=== PATIENT | female | born 1990 | race Caucasian/White ===

== ENCOUNTER 2020-08-09 10:00 | Outpatient (RCR) | payer OTHER, SELFPAY ==
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
--- NOTE | 2020-08-04 10:34 | PCPTNOTE ---
Patient did not show up for scheduled appointment this date; called patient who stated she tried calling earlier stating she was running late and unable to make it but couldn't get threw. Stated her neck was still bothering her not as bad as last week but more at the base of her neck. Stated having increase dizziness this date and wondering if she should go back to the chiropractor for an adjustment. Educated the patient to hold off on returning to the chiropractor due to them increase symptoms and with vestibular evaluation tomorrow the dizziness with be address.
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
== END 2020-08-09 13:42 | disposition home or self-care (01) ==
LOC: ANHPT 10:00
PROVIDERS: Referring Provider Family Medicine; Visit Provider Family Medicine
DX: M54.2 Cervicalgia (principal); G89.29 Other chronic pain
CPT/HCPCS: 97110; 97140; 97162

== ENCOUNTER 2020-09-07 10:00 | Outpatient (RCR) | payer OTHER, SELFPAY ==
--- NOTE | 2020-08-05 09:18 | PTOPEVAL ---
PHYSICAL THERAPY EVALUATION AND PLAN OF CARE 08-05-2020 Thank you for referring Hema Gay to [facility].? She is scheduled to be seen for therapy? 1-2 x/week for 5 weeks. Please review, sign, date and return this plan of care KADE. I agree with and certify that the following plan of care is medically necessary. Referring Physician Date Attending Provider: Aruna Oliver NP *PT Outpatient Evaluation Document 08/05/20 08:12 RAFAEL (Rec: 08/05/20 09:18 RAFAEL [id number]) Outpatient Past Medical History Past Medical History Source of Past Medical History Recalled from Previous Visit, Confirmed with Patient/Family Neurological History Hx Migraine Yes: 2x/month migraine/ headache 2-3x/wk, last all day Cardiovascular History Hx Cardiac Disorders No Significant History Respiratory History Hx Respiratory Disorders No Significant History Gastrointestinal History Hx Gastroesophageal Reflux Disease Yes: meds Genitourinary History Hx Other Genitourinary Disorders Yes: IC bladder dx; constipation issues Musculoskeletal History Hx Other Musculoskeletal Disorders Yes: neck and back pain Hematological History Hx Hematological Disorders No Significant History Endocrine History Hx Endocrine Disorders No Significant History HEENT History Hx Sinus Problems Yes: frequent sinus infection, respiratory allergies Hx Dental Problems Yes: clench jaw-TMJ pain Hx Other HEENT Disorders Yes: sinus headaches-jaw pain, post nasal drainage Integumentary History Hx Skin Disorders No Significant History Psychosocial History Hx Anxiety Yes: not taking any meds-don' t like how they make feel Hx Other Psychiatric Disorders Yes: dizziness increases her anxiety;fear of germs;panic attacks Evaluation Information Problem Diagnosis dizziness/ vestibular rehab Onset Apr 26, 2020 Subjective Information currently getting PT treatment Query Text:As Reported By Patient/ here for cervical pain and Family headaches; Previous Treatments Previous Treatments For This Problem was going chiropractor for neck& back pain, no longer going; Prior Level of Function Activity Level (Last 3 Months) Occupation not working outside of home; Cooking Yes Cleaning Yes Laundry Yes Shopping Yes Driving Yes Comments Additional Prior Level of Function 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
--- NOTE | 2020-08-24 10:37 | PCPTNOTE ---
Patient did not show up for scheduled appointment this date. Called patient and she stated she forgot to call and cancel due to the weather, and helping the kids with school.
--- NOTE | 2020-08-31 11:26 | PCPTNOTE ---
pt did not show for today's appt; called and left voice message with reminder for reeval appt next week;
--- NOTE | 2020-09-07 10:39 | PCPTNOTE ---
pt did not show for today's reevaluation; called and left voicemail for her; message that she missed appt and to call if additional PT is needed, otherwise will be d/c in 2 wks;
--- NOTE | 2020-09-22 11:22 | PCPTNOTE ---
PHYSICAL THERAPY DISCHARGE 09-22-20 Attending Provider: Aruna Oliver NP Patient:Hema Gay Date of :1990 Ms. Gay has not returned for any further treatments since 09/07/2020, therefore she will be discharged at this time. Hema has received 3 PT sessions, for the diagnosis of dizziness, from August 05 to August 17, then did not show for 3 appointments. The goals were not assessed. Thank you for referring Hema to [facility]. Please review, sign, date and return this discharge summary KADE. I have been updated about the patient's current status and I agree with discharge from the above service at this time. Referring Physician Date
== END 2020-09-23 10:06 | disposition home or self-care (01) ==
LOC: ANHPT 10:00
PROVIDERS: PCP Family Medicine
DX: R42 Dizziness and giddiness (principal)
CPT/HCPCS: 97110; 97162

== ENCOUNTER 2021-04-27 19:47 | Emergency (ER) | payer OTHER, SELFPAY ==
[2021-04-27 19:55] VITALS: BP 131/77; PULSE 87; RESP 16; TEMP 37.1; O2SAT 100
--- NOTE | 2021-04-27 20:21 | ED.GENADULT ---
HPI - General Adult General Chief complaint: Upper Respiratory Infection Stated complaint: Congestion Source: patient Mode of arrival: ambulatory Limitations: no limitations History of Present Illness HPI narrative: 30 y/o female. PMHx Allergies. Presents to [facility] this ROMERO w/acute complaints of increased sinus pressure on the RT side, as well as a sore and tender RT nare. Manifestations present X 5 days. No releif with home nasal spray remedies. No fever. No cough, congestion. No ROMERO, dizziness, syncopy. Related Data Home Medications Medication Instructions Recorded Confirmed ascorbate calcium (vitamin C) 500 500 mg PO DAILY 08/29/20 04/27/21 mg tablet cholecalciferol (vitamin D3) 10 10 mcg PO DAILY 08/29/20 04/27/21 mcg (400 unit) capsule copper 380 square mm intrauterine 1 device INTRAUTERINE ONCE 08/29/20 04/27/21 device Allergies Allergy/AdvReac Type Severity Reaction Status Date / Time amoxicillin Allergy Unknown Nausea Verified 04/27/21 20:00 clindamycin Allergy Unknown Nausea Verified 04/27/21 20:00 Review of Systems Review of Systems: CONSTITUTIONAL: Denies fever, chills, sweats. EYES: Denies visual changes, redness, discharge. ENT: Positive congestion. No sore throat, otalgia. CARDIOVASCULAR: Denies chest pain, palpitations, edema. RESPIRATORY: Denies dyspnea, wheezing, cough GASTROINTESTINAL: Denies abdominal pain, nausea, vomiting, diarrhea. GENITOURINARY: Denies dysuria, hematuria, abnormal discharge SKIN: Denies rash or itching. MUSCULOSKELETAL: Denies acute back pain, joint pain, or myalgia. NEUROLOGIC: Denies numbness, or focal weakness. PSYCHIATRIC: Denies anxiety or depression. All systems reviewed & are unremarkable except as noted in HPI and below PMFSH Past Medical History Medical History Depression GERD (gastroesophageal reflux disease) History of HPV infection IBS (irritable bowel syndrome) Overweight (BMI 25.0-29.9) Surgical History Surgical History H/O dilation and curettage Family History Family History Grandparent Family history of malignant neoplasm of stomach Family history of chronic obstructive pulmonary disease Family history of congestive heart failure Mother Hypertension Sibling Asthma Other Family history of cardiovascular disease Family history of malignant neoplasm of male breast Social History Social History Smoking status: Never smoker Alcohol intake: never Substance use: never Gender identity (if verbalized by the patient): Female Sexual Orientation (if Verbalized by the Patient): Straight or Heterosexual Spiritual care concerns: No Agree to blood products: Yes Exam Narrative: GENERAL: This is a well-nourished, well-developed adult, in no apparent distress. HEAD: normocephalic, atraumatic. EYES: PERRL. Sclera clear/white. EARS: External ears normal, auditory canals clear and without drainage, TMs normal. NOSE: External nose normal. Positive Rhinorrhea, no obstruction, nares patent. With tenderness located to RT inner nares, no fluctuance, no obstruction. Maxillary facial pressure. THROAT: Mucous membranes moist, posterior pharynx clear. No exudates. NECK: Neck supple, non-tender without lymphadenopathy, masses or thyromegaly. CARDIOVASCULAR: Regular rate and rhythm without murmurs, gallops, or rubs. RESPIRATORY: Clear to auscultation. Breath sounds equal bilaterally. No wheezes, rales, or rhonchi. GASTROINTESTINAL: Abdomen soft, non-tender, nondistended. Bowel sounds are active. No guarding. SKIN: warm, intact with no suspicious lesions or rash, good texture and turgor. NEURO: Alert, active, and age appropriate. No focal neurologic deficits. EXTREMITIES: Negative. Course Vital S
== END 2021-04-27 20:25 | disposition home or self-care (01) ==
PROVIDERS: Emergency Provider Nurse Practitioner Adult Health; PCP Family Medicine
DX: J01.00 Acute maxillary sinusitis, unspecified (principal); K21.9 Gastro-esophageal reflux disease without esophagitis
CPT/HCPCS: 99213; G0463

== ENCOUNTER 2021-06-20 19:42 | Emergency (ER) | payer OTHER, SELFPAY ==
[2021-06-20 19:52] VITALS: BP 117/75; PULSE 85; RESP 16; TEMP 36.4; O2SAT 99
--- NOTE | 2021-06-20 19:52 | ED.FEMALEGU ---
HPI - Female Genitourinary General Chief complaint: Urogenital-Female Stated complaint: uti Time Seen by Provider: 06/20/21 19:52 Source: patient and RN notes reviewed Mode of arrival: ambulatory Limitations: no limitations History of Present Illness HPI Narrative: 40-year-old female presents with concern for dysuria and low back pain last night. Reports symptoms resolved after using cranberry pills. Reports history of interstitial cystitis. She denies fever, body aches, chills, abdominal pain, vomiting or nausea. MD elicited complaint: UTI Related Data Home Medications Medication Instructions Recorded Confirmed paroxetine HCl 10 mg PO DAILY 06/20/21 06/20/21 Allergies Allergy/AdvReac Type Severity Reaction Status Date / Time amoxicillin Allergy Intermediate Nausea Verified 06/20/21 19:46 clindamycin Allergy Intermediate Nausea Verified 06/20/21 19:46 Review of Systems Review of Systems: CONSTITUTIONAL: Denies malaise, chills, sweats, or fever. GASTROINTESTINAL: Denies abdominal pain, nausea, vomiting GENITOURINARY: Reports dysuria yesterday. Denies current dysuria, urgency, frequency, or hematuria. SKIN: Denies rash or itching. MUSCULOSKELETAL: Reports low back pain. Denies myalgia. All systems reviewed & are unremarkable except as noted in HPI and below PMFSH Past Medical History Medical History Depression GERD (gastroesophageal reflux disease) History of HPV infection IBS (irritable bowel syndrome) Overweight (BMI 25.0-29.9) Surgical History Surgical History H/O dilation and curettage Family History Family History Grandparent Family history of malignant neoplasm of stomach Family history of chronic obstructive pulmonary disease Family history of congestive heart failure Mother Hypertension Sibling Asthma Other Family history of cardiovascular disease Family history of malignant neoplasm of male breast Social History Social History Alcohol intake: never Substance use: never Gender identity (if verbalized by the patient): Female Sexual Orientation (if Verbalized by the Patient): Straight or Heterosexual Spiritual care concerns: No Agree to blood products: Yes Comments At time of signature, agree with nursing past medical, surgical, social and family history. There is no relevant family history pertinent to the presenting complaint Exam Narrative: GENERAL: Well-appearing, well-nourished, and in no acute distress. HEAD: Normocephalic. EYES: PERRLA, conjunctivae clear. NECK: Supple. No lymphadenopathy CHEST: Clear to auscultation. No respiratory distress. HEART: Regular rate and rhythm. ABDOMEN: Soft, nontender upon palpation, nondistended, normal active bowel sounds, no palpable or pulsatile masses, no guarding. Mild bilateral CVA tenderness SKIN: Warm, dry, no rash. NEURO: Alert and oriented x3. PSYCH: Normal mood and affect Course Course Emergency Course: Patient is aware of diagnosis, understands and agrees to treatment plan. Anticipatory guidance given. Patient agrees to follow-up as directed and is aware of reasons to seek care at the emergency department. Portions of this record may have been created with voice recognition software Vital Signs Vital signs: Reviewed. MDM - Female Genitourinary MDM Narrative Medical decision making narrative: Exam findings and UA show no acute concerns or changes; patient is non-toxic appearing and is in no distress. Patient is appropriate for outpatient treatment and follow-up. Differential Diagnosis Differential diagnosis: Likely urinary tract infection and cystitis Critical Care Time Critical Care Time Critical Care Time: No Discharge Plan Discharge Clinical Impression: Dysuria Patien
== END 2021-06-20 20:03 | disposition home or self-care (01) ==
PROVIDERS: Emergency Provider Nurse Practitioner
DX: R30.0 Dysuria (principal); K21.9 Gastro-esophageal reflux disease without esophagitis; F32.A Depression, unspecified
CPT/HCPCS: 81003; 87086; 99213; G0463

== ENCOUNTER 2021-06-24 15:11 | Emergency (ER) | payer OTHER, SELFPAY ==
--- NOTE | ~2021-06-24 | XR_ITS ---
XR chest 2V 06/24/2021 16:18 Indication: Productive cough. Covid positive. Procedure: 2 view chest Comparison: No prior studies for comparison. Findings: Patchy bibasilar airspace disease, compatible with pneumonia. Heart size normal. No pleural effusion or pneumothorax. No acute osseous abnormality. Impression: 1: Patchy bibasilar airspace disease, compatible with pneumonia. Reviewed, dictated and finalized at location A. B TRAINER Impression: 1: Patchy bibasilar airspace disease, compatible with pneumonia.
--- NOTE | 2021-06-24 15:25 | ED.URI ---
HPI - URI/Sore Throat General Chief Complaint: Upper Respiratory Infection Stated Complaint: chest congestion Time Seen by Provider: 06/24/21 16:04 Source: patient and RN notes reviewed Mode of arrival: ambulatory Limitations: no limitations History of Present Illness HPI Narrative: 30-year-old female presents with concern for cough and chest congestion. Reports she tested positive for Covid on Saturday. She reports cough, back pain when she coughs. Reports anxiety. She denies fever, shortness of breath. Reports pulse oximetry at home reads 96-98. MD elicited complaint: cough Related Data Home Medications Medication Instructions Recorded Confirmed paroxetine HCl 10 mg PO DAILY 06/20/21 06/24/21 ondansetron HCl 4 mg PO PRN PRN 06/24/21 06/24/21 Allergies Allergy/AdvReac Type Severity Reaction Status Date / Time amoxicillin Allergy Intermediate Nausea Verified 06/24/21 16:05 clindamycin Allergy Intermediate Nausea Verified 06/24/21 16:05 Review of Systems Review of Systems: CONSTITUTIONAL: Reports malaise. Denies chills, sweats, or fever. EYES: Denies visual changes, redness, or discharge. ENT: Reports rhinorrhea, congestion. Denies sinus pain, otalgia and sore throat. CARDIOVASCULAR: Denies chest pain, palpitations, or edema. RESPIRATORY: Reports cough. Denies dyspnea. GASTROINTESTINAL: Denies abdominal pain, nausea, vomiting, diarrhea SKIN: Denies rash or itching. MUSCULOSKELETAL: Denies myalgia. NEUROLOGIC: Denies headache. Psych: Reports anxiety All systems reviewed & are unremarkable except as noted in HPI and below PMFSH Past Medical History Medical History Depression GERD (gastroesophageal reflux disease) History of HPV infection IBS (irritable bowel syndrome) Overweight (BMI 25.0-29.9) Surgical History Surgical History H/O dilation and curettage Family History Family History Grandparent Family history of malignant neoplasm of stomach Family history of chronic obstructive pulmonary disease Family history of congestive heart failure Mother Hypertension Sibling Asthma Other Family history of cardiovascular disease Family history of malignant neoplasm of male breast Social History Social History Alcohol intake: never Substance use: never Gender identity (if verbalized by the patient): Female Sexual Orientation (if Verbalized by the Patient): Straight or Heterosexual Spiritual care concerns: No Agree to blood products: Yes Comments At time of signature, agree with nursing past medical, surgical, social and family history. There is no relevant family history pertinent to the presenting complaint Exam Narrative: GENERAL: Well-appearing, well-nourished, and in no acute distress. HEAD: Normocephalic EYES: PERRLA, conjunctivae clear ENT: Mucous membranes moist. TM pearly owens with sharp light reflex bilaterally; no tragal tenderness. NECK: Supple. No lymphadenopathy CHEST: Left lower crackles. Breath sounds equal. No wheezing, or stridor. No respiratory distress, speaks in full sentences. HEART: Regular rate and rhythm. No murmur heard. SKIN: Warm, dry, no rash. NEURO: Alert and oriented x3. PSYCH: Normal mood and affect Course Course Emergency Course: Patient is aware of diagnosis, understands and agrees to treatment plan. Anticipatory guidance given. Patient agrees to follow-up as directed and is aware of reasons to seek care at the emergency department. Portions of this record may have been created with voice recognition software Vital Signs Vital signs: Reviewed. MDM - URI/Sore Throat MDM Narrative Medical decision making narrative: Differential diagnosis considered: Marinelli virus, strep pharyngitis, allergic rhinitis, upper respiratory tract
[2021-06-24 15:34] VITALS: BP 135/80; PULSE 98; RESP 16; TEMP 36.8; O2SAT 98
== END 2021-06-24 16:45 | disposition home or self-care (01) ==
PROVIDERS: Emergency Provider Nurse Practitioner; PCP Family Medicine
DX: U07.1 COVID-19 (principal); J12.82 Pneumonia due to coronavirus disease 2019; F32.A Depression, unspecified; K21.9 Gastro-esophageal reflux disease without esophagitis
CPT/HCPCS: 71046; 99213; G0463

== ENCOUNTER 2021-07-16 08:26 | Emergency (ER) | payer OTHER, SELFPAY ==
--- NOTE | 2021-07-16 08:29 | ED.URI ---
HPI - URI/Sore Throat General Chief Complaint: Upper Respiratory Infection Stated Complaint: sore throat/swain/neck pain Source: patient, family, RN notes reviewed and old records reviewed Mode of arrival: ambulatory Limitations: no limitations History of Present Illness HPI Narrative: 30-year-old female presents to the [facility] with complaints of a sore throat that worsened today, Started yesterday. Patient reports that she had Covid early June and ever since has had intermittent headaches, sinus congestion and pressure. Reports that her daughter tested positive for strep the other day. She is concerned for strep Denies fevers, chest pain, abdominal pain. No nausea vomiting diarrhea. MD elicited complaint: sore throat Related Data Home Medications Medication Instructions Recorded Confirmed paroxetine HCl 10 mg PO DAILY 06/20/21 06/24/21 azelastine INTRANASAL 07/16/21 pantoprazole PO 07/16/21 07/16/21 Allergies Allergy/AdvReac Type Severity Reaction Status Date / Time amoxicillin Allergy Intermediate Nausea Verified 07/16/21 08:34 clindamycin Allergy Intermediate Nausea Verified 07/16/21 08:34 Review of Systems Review of Systems: All systems reviewed & are unremarkable except as noted in HPI and below Constitutional: Constitutional: Reports no additional constitutional complaints, Denies chills, Denies fever(s) and Denies headache(s) Eyes: Eyes: Reports no additional eye complaints ENT: Reports as per HPI, Denies vertigo, Denies dizziness, Denies headache(s), Reports nasal congestion and Reports sore throat Cardiovascular: Cardiovascular: Reports no additional cardiovascular complaints, Denies chest pain, Denies syncope, Denies rapid heart rate and Denies dyspnea Respiratory: Respiratory: Reports no additional respiratory complaints, Denies cough, Denies dyspnea and Denies wheezing Gastrointestinal: Gastrointestinal: Reports no additional gastrointestinal complaints, Denies abdominal pain, Denies diarrhea, Denies nausea and Denies vomiting Musculoskeletal: Musculoskeletal: Reports no additional musculoskeletal complaints and Denies numbness Integumentary/Breasts: Skin/Breast: Reports system reviewed and no additional complaints, except as docu Neurologic: Reports as per HPI, Denies vertigo, Denies dizziness, Denies syncope, Reports headache(s) (Frontal), Denies focal weakness and Denies numbness Psychiatric: Psychiatric: Reports no additional psychiatric complaints Allergic/Immunologic: Allergic/Immunologic: Reports no additional allergic/immunologic complaints and Denies wheezing PMFSH Past Medical History Medical History Depression GERD (gastroesophageal reflux disease) History of HPV infection IBS (irritable bowel syndrome) Overweight (BMI 25.0-29.9) Surgical History Surgical History H/O dilation and curettage Family History Family History Grandparent Family history of malignant neoplasm of stomach Family history of chronic obstructive pulmonary disease Family history of congestive heart failure Mother Hypertension Sibling Asthma Other Family history of cardiovascular disease Family history of malignant neoplasm of male breast Social History Social History Alcohol intake: never Substance use: never Gender identity (if verbalized by the patient): Female Sexual Orientation (if Verbalized by the Patient): Straight or Heterosexual Spiritual care concerns: No Agree to blood products: Yes Comments At the time of my signature, I reviewed and agree with the nursing past medical, surgical, social, and family history. There is no relevant family history pertinent to the patient complaint. Exam Const: General: cooperative, healthy appearing, no acute distress and alert Nutritional Ivan
[2021-07-16 08:34] VITALS: BP 102/66; PULSE 86; RESP 16; TEMP 36.3; O2SAT 100
[2021-07-16 08:43] VITALS: BP 102/66; PULSE 86; RESP 16; TEMP 36.3; O2SAT 100
== END 2021-07-16 08:51 | disposition home or self-care (01) ==
PROVIDERS: Emergency Provider Nurse Practitioner; PCP Family Medicine
DX: J02.9 Acute pharyngitis, unspecified (principal); K21.9 Gastro-esophageal reflux disease without esophagitis; F32.A Depression, unspecified; Z86.16 Personal history of COVID-19
CPT/HCPCS: 87081; 87880; 99213; G0463

== ENCOUNTER 2021-09-23 10:43 | Emergency (ER) | payer OTHER, SELFPAY ==
[2021-09-23 10:53] VITALS: BP 93/68; PULSE 85; RESP 18; TEMP 36.4; O2SAT 100
--- NOTE | 2021-09-23 10:59 | ED.URI ---
HPI - URI/Sore Throat General Chief Complaint: Upper Respiratory Infection Stated Complaint: Sore Throat Time Seen by Provider: 09/23/21 10:59 Source: patient Mode of arrival: ambulatory Limitations: no limitations History of Present Illness HPI Narrative: 30 yo F presents with c/o sore throat, PND, runny nose that started yesterday. Her son had also just had similar symptoms and is now fine. She thought she had cold symptoms or allergies but then checked throat today and saw white spot. Now concerned that she might have strep throat. Denies fever/chills. No N/V. Denies headache. All systems reviewed and negative except as noted above. Related Data Home Medications Medication Instructions Recorded Confirmed ascorbic acid (vitamin C) 500 mg 500 mg PO DAILY 09/13/21 09/23/21 capsule,extended release magnesium gluconate 27 mg 27 mg PO BID 09/13/21 09/23/21 magnesium (500 mg) tablet Allergies Allergy/AdvReac Type Severity Reaction Status Date / Time amoxicillin Allergy Intermediate Nausea Verified 09/23/21 10:58 clindamycin Allergy Intermediate Nausea Verified 09/23/21 10:58 Review of Systems Review of Systems: CONSTITUTIONAL: Denies fever, chills, or sweats. EYES: Denies visual changes, redness, or discharge. ENT: Reports rhinorrhea, congestion, sore throat. Denies otalgia. CARDIOVASCULAR: Denies chest pain, palpitations, or edema. RESPIRATORY: Denies cough or dyspnea. GASTROINTESTINAL: Denies abdominal pain, nausea, vomiting, or diarrhea. GENITOURINARY: Denies dysuria or hematuria. SKIN: Denies rash or itching. MUSCULOSKELETAL: Denies back pain, joint pain, or myalgia. NEUROLOGIC: Denies headache, numbness, or weakness. PSYCHIATRIC: Denies anxiety or depression. All other systems reviewed are negative, except as documented in HPI. [facility] Past Medical History Medical History Depression GERD (gastroesophageal reflux disease) History of HPV infection IBS (irritable bowel syndrome) Overweight (BMI 25.0-29.9) Surgical History Surgical History H/O dilation and curettage Family History Family History Grandparent Family history of malignant neoplasm of stomach Family history of chronic obstructive pulmonary disease Family history of congestive heart failure Mother Hypertension Sibling Asthma Other Family history of cardiovascular disease Family history of malignant neoplasm of male breast Social History Social History Smoking status: Never smoker Alcohol intake: never Substance use: never Gender identity (if verbalized by the patient): Female Sexual Orientation (if Verbalized by the Patient): Straight or Heterosexual Spiritual care concerns: No Agree to blood products: Yes Comments At time of signature, agree with nursing past medical, surgical, social and family history. There is no relevant family history pertinent to the presenting complaint. Exam Narrative: GENERAL: This is a well-nourished, well-developed patient, in no apparent distress. HEAD: normocephalic, atraumatic. EYES: PERRL. Sclera clear/white. Vision is grossly intact. EARS: External ears normal, auditory canals clear and without drainage, TMs normal without perforation. Hearing grossly intact. NOSE: External nose normal with no obvious nasal discharge, nares without redness, no rhinorrhea. THROAT: Mucous membranes moist, mild erythema to posterior pharynx with clear postnasal drainage. Tonsil stone noted to left tonsil. NECK: Neck supple, non-tender without lymphadenopathy, masses or thyromegaly. CARDIOVASCULAR: Regular rate and rhythm without murmurs, gallops, or rubs. RESPIRATORY: Clear to auscultation. Breath sounds equal bilaterally. No wheezes, rales, or rhonchi. SKIN: warm, Dry, intact with no s
== END 2021-09-23 11:10 | disposition home or self-care (01) ==
PROVIDERS: Emergency Provider Nurse Practitioner Family; PCP Family Medicine
DX: J02.9 Acute pharyngitis, unspecified (principal); J35.8 Other chronic diseases of tonsils and adenoids; K21.9 Gastro-esophageal reflux disease without esophagitis
CPT/HCPCS: 87081; 87880; 99213; G0463

== ENCOUNTER 2021-09-29 12:12 | Outpatient (CLI) | payer OTHER, SELFPAY ==
--- NOTE | 2021-09-29 12:27 | ECHO_ITS ---
Patient Info Name: Hema Gay Age: 30 years : 1990 Gender: Female Ht: 65 in Wt: 164 lbs BSA: 1.86 m2 HR: 81 bpm BP: 117 / 75 mmHg Technical Quality: Good Exam Date: 09/29/2021 12:49 PM Exam Location: [facility] Pulmonary Patient Status: Outpatient Admit Date: 09/29/2021 Staff Ordering Physician: Ole Faulkner DO Insecticide Mixer: Kanika Kellogg RDCS Attending Provider: Ole Faulkner DO Referring Physician: Kaushik DYSON; Exam Type: CA echo doppler color flow Study Info Indications - dyspnea Complete two-dimensional, color flow and Doppler transthoracic echocardiogram is performed. Summary 1. Complete two-dimensional, color flow and Doppler transthoracic echocardiogram is performed. 2. Left ventricular chamber dimension is normal. 3. Left ventricular systolic function is normal, estimated at 60-65%. 4. The left ventricular diastolic function is normal. 5. E/e' 4 is not elevated. 6. There is trace mitral valve regurgitation. 7. There is mild tricuspid valve regurgitation. 8. No pulmonary hypertension, estimated pulmonary arterial systolic pressure is 24 mmHg. 9. There is trace pulmonic regurgitation. Left Ventricle E/e' 4 is not elevated. Left ventricular chamber dimension is normal. Left ventricular systolic function is normal, estimated at 60-65%. The left ventricular diastolic function is normal. Right Ventricle Right ventricular chamber dimension is normal. Right ventricular systolic function is normal. Left Atria Left atrial chamber dimension is normal. Right Atria Right atrial chamber dimension is normal. Aortic Valve The aortic valve is trileaflet. There is no aortic valve stenosis. There is no aortic valve regurgitation. Pulmonic Valve There is trace pulmonic regurgitation. Mitral Valve There is no mitral valve stenosis. There is trace mitral valve regurgitation. Tricuspid Valve There is mild tricuspid valve regurgitation. No pulmonary hypertension, estimated pulmonary arterial systolic pressure is 24 mmHg. Pericardium/Pleural There is no pericardial effusion. Inferior Vena Cava Normal inferior vena cava with >50% collapse upon inspiration consistent with normal right atrial pressure, 5 mmHg. Aorta The aortic root size at the sinus of Valsalva is normal. Left Ventricular Outflow Tract Name Value Normal LVOT 2D LVOT Diameter 2.1 cm LVOT Doppler LVOT Peak Gradient 6 mmHg LVOT Mean Gradient 3 mmHg LVOT VTI 25 cm LVOT VTI/AV VTI Ratio 1.0 LVOT Stroke Volume 90 ml LVOT CO 17.5 l/min LVOT CI 9.4 l/min/m2 Pulmonic Valve Name Value Normal PV Doppler PV Peak Gradient
== END 2021-09-29 12:13 | disposition home or self-care (01) ==
LOC: ANHCARD 12:13
PROVIDERS: PCP Family Medicine; Visit Provider Internal Medicine Cardiovascular Disease
DX: R06.00 Dyspnea, unspecified (principal); I36.1 Nonrheumatic tricuspid (valve) insufficiency
CPT/HCPCS: 93306

== ENCOUNTER 2021-10-21 09:17 | Outpatient (CLI) | payer OTHER, SELFPAY | END 2021-10-21 09:18 | disposition home or self-care (01) | PROVIDERS: PCP Family Medicine; Visit Provider Obstetrics & Gynecology | DX: Z34.90 Encounter for supervision of normal pregnancy, unspecified, unspecified trimester (principal); Z3A.00 Weeks of gestation of pregnancy not specified | CPT/HCPCS: 36415; 84702 ==

== ENCOUNTER 2021-10-23 11:19 | Outpatient (CLI) | payer OTHER, SELFPAY | END 2021-10-23 11:20 | disposition home or self-care (01) | LOC: ANHLAB 11:21 | PROVIDERS: PCP Family Medicine; Visit Provider Obstetrics & Gynecology | DX: O20.0 Threatened abortion (principal) | CPT/HCPCS: 36415; 84702 ==

== ENCOUNTER 2022-03-13 08:19 | Emergency (ER) | payer OTHER, SELFPAY ==
[2022-03-13 08:25] VITALS: BP 120/66; PULSE 114; RESP 14; TEMP 36.2; O2SAT 100
--- NOTE | 2022-03-13 08:45 | ED.URI ---
HPI - URI/Sore Throat General Chief Complaint: Upper Respiratory Infection Stated Complaint: uri Time Seen by Provider: 03/13/22 08:46 Source: patient and RN notes reviewed Mode of arrival: ambulatory Limitations: no limitations History of Present Illness HPI Narrative: 31 y/o female 25 weeks gestation presented for c/o sinus congestion and pressure. Taking otc meds for symptoms. States she could not be seen by PCP. Denies shortness of breath, wheezing, dizziness, nausea, vomiting, diarrhea, fevers or chills. MD elicited complaint: cough Related Data Home Medications Medication Instructions Recorded Confirmed ascorbic acid (vitamin C) 500 mg 500 mg PO DAILY 09/13/21 03/13/22 capsule,extended release (Vitamin C) magnesium gluconate 27 mg 27 mg PO BID 09/13/21 03/13/22 magnesium (500 mg) tablet [id number] 3-fat com #1 27 1 cap PO DAILY 12/01/21 03/13/22 mg-1 mg-300 mg capsule ferric citrate 210 mg iron tablet 210 mg PO DAILY 12/01/21 03/13/22 (Auryxia) pantoprazole 40 mg tablet,delayed 40 mg PO QAM 12/01/21 03/13/22 release Allergies Allergy/AdvReac Type Severity Reaction Status Date / Time amoxicillin Allergy Intermediate Nausea Verified 03/13/22 08:25 clindamycin Allergy Intermediate Nausea Verified 03/13/22 08:25 Review of Systems Review of Systems: CONSTITUTIONAL: Denies malaise, chills, sweats, fever EYES: Denies visual changes, redness, or discharge ENT: Reports rhinorrhea, congestion, sinus pain, denies otalgia, sore throat CARDIOVASCULAR: Denies chest pain, palpitations, edema RESPIRATORY: Reports cough, post nasal drainage. Denies dyspnea GASTROINTESTINAL: Denies abdominal pain, nausea, vomiting, diarrhea, Endorses positive movement. NEUROLOGIC: Denies headache PMFSH Past Medical History Medical History Depression GERD (gastroesophageal reflux disease) History of HPV infection IBS (irritable bowel syndrome) Overweight (BMI 25.0-29.9) Surgical History Surgical History H/O dilation and curettage Family History Family History Grandparent Family history of malignant neoplasm of stomach Family history of chronic obstructive pulmonary disease Family history of congestive heart failure Mother Hypertension Sibling Asthma Other Family history of cardiovascular disease Family history of malignant neoplasm of male breast Social History Social History Smoking status: Never smoker Alcohol intake: never Substance use: never Gender identity (if verbalized by the patient): Female Sexual Orientation (if Verbalized by the Patient): Straight or Heterosexual Spiritual care concerns: No Agree to blood products: Yes Exam Narrative: GENERAL: well-appearing EYES: conjunctivae clear ENT: Mucous membranes moist. TM pearly owens with dull light reflex bilaterally; no tragal tenderness. CHEST: Clear to auscultation, breath sounds equal. No wheezing, rhonchi, rales, or stridor. No respiratory distress, speaks in full sentences. HEART: Regular rate and rhythm. No murmur heard. ABD: gravid SKIN: Warm, dry, no rash. NEURO: Alert and oriented x3. PSYCH: Normal mood and affect Course Course Emergency Course: Patient is aware of diagnosis, understands and agrees to treatment plan. Anticipatory guidance given. Patient agrees to follow-up as directed and is aware of reasons to seek care at the emergency department. Portions of this record may have been created with voice recognition software Level of Care: Express Care Visit Vital Signs Vital signs: Vital Signs Temperature 97.1 F L 03/13/22 08:25 Pulse Rate 114 H 03/13/22 08:25 Respiratory Rate 14 03/13/22 08:25 Blood Pressure 120/66 03/13/22 08:25 Pulse Oximetry
== END 2022-03-13 09:11 | disposition home or self-care (01) ==
PROVIDERS: Emergency Provider Nurse Practitioner Family; PCP Family Medicine
DX: O99.512 Diseases of the respiratory system complicating pregnancy, second trimester (principal); Z3A.25 25 weeks gestation of pregnancy; J06.9 Acute upper respiratory infection, unspecified; O99.612 Diseases of the digestive system complicating pregnancy, second trimester; K21.9 Gastro-esophageal reflux disease without esophagitis
CPT/HCPCS: 99213; G0463

== ENCOUNTER 2022-05-26 15:25 | Inpatient (IN) | payer OTHER, SELFPAY ==
[2022-05-26] VITALS (15 sets, daily range): BP systolic 107–145; BP diastolic 53–96; PULSE 94–121; BMI 37.4
--- NOTE | 2022-05-26 15:25 | PC.NURSE ---
See [facility] number [id number] for prior charting.
--- NOTE | 2022-05-26 15:25 | LDADM ---
This patient, Hema Gay, was admitted to Labor/Delivery/Recovery 109 on 05/26/22 at 15:25. Plans for labor, pain management and were discussed with patient. Patient/family oriented to hospital policies and general routines including ID bracelet, bed and alarms, visiting hours, pain management, procedures, bathroom and other care routines, personal items, smoking policy, room service/diet and guest tray routines, security routines, and visiting hours. Patient/Family are encouraged to report perceived risks to care and to ask questions if they do not understand what they are told or what they should do. See [facility] for further documentation.
--- OUTSIDE RECORDS SUMMARY | 2022-05-26 15:56 | XMS_ITS | Encounter Summary ---
:1990 Author Care Team Providers Name Role Phone Alfonso Mccoy MD Primary Care Provider [phone] Reason for Visit OB visit OB [id number] EDC 06/24/2022 LMP 09/18/2021 Assessment and Plan Assessment Note Patient is 31___weeks . Discuss ed plan. 1. Routine care 2. -induced hypertension ? CBC w/ auto diff ? CMP, serum or plasma ? uric acid, serum or plasma ? bile acids, total, serum Discussion Note: None recorded.Patient educational handouts: No information available. Plan of Care Reminders Provider Appointments Nst 05/29/2022 Nst, , EQUIP 8:30AM ? Ob Routine 05/30/2022 Ellynroyce Kaufmane , CNM 9:00AM ? Nst 06/04/2022 Nst, , EQUIP 9:00AM ? Ob Routine 06/08/2022 Ellyn E Shantelle , CNM 9:00AM ? Nst 06/08/2022 Nst, , EQUIP 8:30AM ? Nst 06/12/2022 Nst, , EQUIP 9:00AM ? Ob Routine 06/15/2022 Ellyn Calvin Kaufmane , CNM 9:00AM ? Nst 06/15/2022 Nst, , EQUIP 8:30AM ? U/s Ob Growth 06/15/2022 Ultrasound Two, TECH 9:30AM ? Nst 06/19/2022 Nst, , EQUIP 9:00AM ? Ob Routine 06/22/2022 Ellyn E Lima , CNM 9:00AM ? Nst 06/22/2022 Nst, , EQU
--- OUTSIDE RECORDS SUMMARY | 2022-05-26 15:56 | XMS_ITS | Encounter Summary ---
:1990 Author Care Team Providers Name Role Phone Alfonso Mccoy MD Primary Care Provider [phone] Reason for Visit None recorded. Assessment and Plan 1. Chronic hypertension complicating AN D/OR reason for care during ? non-stress test Discussion Note: None recorded.Patient educational handouts: No information available. Plan of Care Reminders Provider Appointments Nst 05/29/2022 8:30AM Nst, , EQUIP ? Ob Routine 05/30/2022 9:00AM Ellyn E Prin gle, CNM ? Nst 06/04/2022 9:00AM Nst, , EQUIP ? Ob Routine 06/08/2022 9:00AM Ellyn E Prin gle, CNM ? Nst 06/08/2022 8:30AM Nst, , EQUIP ? Nst 06/12/2022 9:00AM Nst, , EQUIP ? Ob Routine 06/15/2022 9:00AM Ellyn E Prin gle, CNM ? Nst 06/15/2022 8:30AM Nst, , EQUIP ? U/s Ob Growth 06/15/2022 9:30AM Ultrasound T wo, TECH ? Nst 06/19/2022 9:00AM Nst, , EQUIP ? Ob Routine 06/22/2022 9:00AM Ellyn E Prin gle, CNM ? Nst 06/22/2022 8:30AM Nst, , EQUIP Lab None recorded. ? ? Referral None recorded. ? ? Procedures None recorded. ? ? Surgeries None recorded. ? ? Imaging Non-stress Test 05/11/2022 [place] Medications Name Start Date ? ? clobetasol 0.05 % topical cream ? cyclobenzaprine 5 mg tablet ? Take 1 tablet at bedtime as needed famotidine 20 mg tablet ? TAKE 1 TABLET BY MOUTH DAILY Iron (ferrous sulfate) ? pantoprazole 40 mg tablet,delayed release ? Take 1 tablet every day by oral route for 30 days. Vitamins ? Vitamin C ? Vitamin D ? Medications A
--- OUTSIDE RECORDS SUMMARY | 2022-05-26 15:56 | XMS_ITS | Encounter Summary ---
:1990 Author Care Team Providers Name Role Phone Alfonso Mccoy MD Primary Care Provider [phone] Reason for Visit OB visit OB [id number] EDC 06/24/2022 LMP 09/18/2021 Assessment and Plan Assessment Note Patient is __33_weeks . Discuss ed plan. 1. Cholestasis of ? bile acids, total, serum ? CMP, serum or plasma 2. Routine care Discussion Note: None recorded.Patient educational handouts: No information available. Plan of Care Reminders Provider Appointments Nst 05/29/2022 Nst, , EQUIP 8:30AM ? Ob Routine 05/30/2022 Ellyn Kaufmane , CNM 9:00AM ? Nst 06/04/2022 Nst, , EQUIP 9:00AM ? Ob Routine 06/08/2022 Ellynroyce Kaufmane , CNM 9:00AM ? Nst 06/08/2022 Nst, , EQUIP 8:30AM ? Nst 06/12/2022 Nst, , EQUIP 9:00AM ? Ob Routine 06/15/2022 Ellyn Kaufmane , CNM 9:00AM ? Nst 06/15/2022 Nst, , EQUIP 8:30AM ? U/s Ob Growth 06/15/2022 Ultrasound Two, TECH 9:30AM ? Nst 06/19/2022 Nst, , EQUIP 9:00AM ? Ob Routine 06/22/2022 Ellyn Calvin Kaufmane , CNM 9:00AM ? Nst 06/22/2022 Nst, , EQUIP 8:30AM Lab Bile Acids, Total, Serum 05/11/2022
--- OUTSIDE RECORDS SUMMARY | 2022-05-26 15:56 | XMS_ITS | Encounter Summary ---
:1990 Author Care Team Providers Name Role Phone Alfonso Mccoy MD Primary Care Provider [phone] Reason for Visit None recorded. Assessment and Plan 1. Cholestasis of ? US, obstetric, follow-up Discussion Note: None recorded.Patient educational handouts: No [...] ? Surgeries None recorded. ? ? Imaging US, Obstetric, Follow-up 04/25/2022 [place] Medications Name Start Date ? ? clobetasol [...] Vitamin C ? Vitamin D ? Medications Administered None recorded.
--- OUTSIDE RECORDS SUMMARY | 2022-05-26 15:56 | XMS_ITS | Encounter Summary ---
:1990 Author Care Team Providers Name Role Phone Alfonso Mccoy MD Primary Care Provider [phone] Reason for Visit OB visit OB [id number] EDC 06/24/2022 LMP 09/18/2021 Assessment and Plan 1. Routine care Discussion Note: None recorded.Patient educational [...] ? Surgeries None recorded. ? ? Imaging None recorded. ? ? Medications Name Start Date ? ? clobetasol [...] Vitamin D ? Medications Administered None recorded. Vitals
--- OUTSIDE RECORDS SUMMARY | 2022-05-26 15:56 | XMS_ITS | Encounter Summary ---
:1990 Author Care Team Providers Name Role Phone Alfonso Mccoy MD Primary Care Provider [phone] Reason for Visit None recorded. Assessment and Plan 1. Low back pain in Pt in office needing to be fitted for a maternity belt r/t back pain and pain in pelvis. Pt fitted for belt and gave pt n umber to call [facility] this afternoon to order belt. Pt verbalized understanding. DOMINIK franks Discussion Note: None recorded.Patient educational handouts: No [...] 40 mg tablet,delayed release ? Take 1 table
--- OUTSIDE RECORDS SUMMARY | 2022-05-26 15:56 | XMS_ITS | Encounter Summary ---
:1990 Author Care Team Providers Name Role Phone Alfonso Mccoy MD Primary Care Provider [phone] Reason for Visit None recorded. Assessment and Plan 1. Cholestasis of ? non-stress test Discussion Note: None recorded.Patient educational handouts: No information available. Plan of Care Reminders Provider Appointments Nst 05/29/2022 8:30AM Nst, , EQUIP ? Ob Routine 05/30/2022 9:00AM Ellny E Prin gle, CNM ? Nst 06/04/2022 [...] None recorded. ? ? Imaging Non-stress Test 05/04/2022 [place] Medications Name Start Date ? ? clobetasol [...] D ? Medications Administered None recorded. Vitals None
--- OUTSIDE RECORDS SUMMARY | 2022-05-26 15:56 | XMS_ITS | Encounter Summary ---
:1990 Author Care Team Providers Name Role Phone Alfonso Mccoy MD Primary Care Provider [phone] Reason for Visit None recorded. Assessment and [...] None recorded. ? ? Imaging Non-stress Test 05/15/2022 [place] Medications Name Start Date ? ? clobetasol [...]
--- OUTSIDE RECORDS SUMMARY | 2022-05-26 15:56 | XMS_ITS | Encounter Summary ---
:1990 Author Care Team Providers Name Role Phone Alfonso Mccoy MD Primary Care Provider [phone] Reason for Visit None recorded. Assessment and Plan 1. condition affecting obstetrica l care of mother ? US, obstetric, biophysical profile Discussion Note: None recorded.Patient educational handouts: No information available. Plan of Care Reminders Provider Appointments Nst 05/29/2022 Nst, , EQUIP 8:30AM ? Ob Routine 05/30/2022 Ellyn E Shantelle , CNM 9:00AM ? Nst 06/04/2022 Nst, , EQUIP 9:00AM ? Ob Routine 06/08/2022 Ellyn E Shantelle , CNM 9:00AM ? Nst 06/08/2022 Nst, , EQUIP 8:30AM ? Nst 06/12/2022 Nst, , EQUIP 9:00AM ? Ob Routine 06/15/2022 Ellyn E Shantelle , CNM 9:00AM ? Nst 06/15/2022 Nst, , EQUIP 8:30AM ? U/s Ob Growth 06/15/2022 Ultrasound Two, TECH 9:30AM ? Nst 06/19/2022 Nst, , EQUIP 9:00AM ? Ob Routine 06/22/2022 Ellyn E Kingsley , CNM 9:00AM ? Nst 06/22/2022 Nst, , EQUIP 8:30AM Lab None recorded. ? ? Referral None recorded. ? ? Procedures None recorded. ? ? Surgeries None recorded. ? ? Imaging US, Obstetric, Biophysical 05/15/2022 Estefani [place] Profile
--- OUTSIDE RECORDS SUMMARY | 2022-05-26 15:56 | XMS_ITS | Encounter Summary ---
:1990 Author Care Team Providers Name Role Phone Alfonso Mccoy MD Primary Care Provider [phone] Reason for Visit None recorded. Assessment and Plan 1. condition affecting obstetrica l care of mother ? US, obstetric, biophysical profile + non-stress test Discussion Note: None recorded.Patient educational handouts: No information available. Plan of Care Reminders Provider Appointments Nst 05/29/2022 Nst, , EQUIP 8:30AM ? Ob Routine 05/30/2022 Ellynroyce Kaufmane , CNM 9:00AM ? Nst 06/04/2022 Nst, , EQUIP 9:00AM ? Ob Routine 06/08/2022 Ellyn Calvin [place] , CNM 9:00AM ? Nst 06/08/2022 Nst, , EQUIP 8:30AM ? Nst 06/12/2022 Nst, , EQUIP 9:00AM ? Ob Routine 06/15/2022 Ellyn E Shantelle , CNM 9:00AM ? Nst 06/15/2022 Nst, , EQUIP 8:30AM ? U/s Ob Growth 06/15/2022 Ultrasound Two, TECH 9:30AM ? Nst 06/19/2022 Nst, , EQUIP 9:00AM ? Ob Routine 06/22/2022 Ellynroyce Kaufmane , CNM 9:00AM ? Nst 06/22/2022 Nst, , EQUIP 8:30AM Lab None recorded. ? ? Referral None recorded. ? ? Procedures None recorded. ? ? Surgeries None recorded. ? ? Imaging US, Obstetric, Biophysical 05/01/2022 Estefani [place]
--- OUTSIDE RECORDS SUMMARY | 2022-05-26 15:56 | XMS_ITS | Encounter Summary ---
:1990 Author Care Team Providers Name Role Phone Alfonso Mccoy MD Primary Care Provider [phone] Reason for Visit OB visit OB [id number] EDC 06/24/2022 LMP 09/18/2021 Assessment and Plan Assessment Note Patient is __32_weeks . Discuss ed plan. 1. Routine care Discussion Note: None recorded.Patient educational handouts: No information available. Plan of Care Reminders Provider Appointments Nst 05/29/2022 8:30AM Nst, , EQUIP ? Ob Routine 05/30/2022 9:00AM Ellyn E gle, CNM ? Nst 06/04/2022 9:00AM Nst, , EQUIP ? Ob Routine 06/08/2022 9:00AM Ellyn E gle, CNM ? Nst 06/08/2022 8:30AM Nst, , EQUIP ? Nst 06/12/2022 9:00AM Nst, , EQUIP ? Ob Routine 06/15/2022 9:00AM Ellyn E gle, CNM ? Nst 06/15/2022 8:30AM Nst, , EQUIP ? U/s Ob Growth 06/15/2022 9:30AM Ultrasound T wo, TECH ? Nst 06/19/2022 9:00AM Nst, , EQUIP ? Ob Routine 06/22/2022 9:00AM Ellyn E gle, CNM ? Nst 06/22/2022 8:30AM Nst, [...]
--- OUTSIDE RECORDS SUMMARY | 2022-05-26 15:56 | XMS_ITS | Encounter Summary ---
:1990 Author Care Team Providers Name Role Phone Alfonso Mccoy MD Primary Care Provider [phone] Reason for Visit None recorded. Assessment and [...] None recorded. ? ? Imaging Non-stress Test 05/08/2022 [place] Medications Name Start Date ? ? clobetasol [...]
--- OUTSIDE RECORDS SUMMARY | 2022-05-26 15:56 | XMS_ITS ---
:1990 Author Care Team Providers Name Role Phone ERMELINDA LEWIS MD Primary Care Provider [phone] Allergies Code Code System Name Reaction Severity Status Onset 2582 RxNorm Clindamycin ? ? Active ? 723 RxNorm Amoxicillin ? ? Deactivated ? Medications Name Status Start Date Stop Date ? ? albuterol sulfate HFA 90 mcg/actuation aerosol Completed ? 08/30/2021 inhaler Allergy (chlorpheniramine) 4 mg tablet Completed ? 08/30/2021 Take 1 tablet every 4 hours by oral route. amoxicillin 500 mg capsule Completed ? 06/16 amoxicillin 875 mg tablet Completed ? 2021 amoxicillin 875 mg-potassium clavulanate 125 mg tablet Completed ? 03/28/2022 TAKE 1 TABLET BY MOUTH EVERY 12 HOURS FOR 7 DAYS antacid liq./m-dryl/nystatin susp Completed ? 07/05/2021 SWISH 5 ML AROUND MOUTH THEN SPIT OUT FOUR TIMES DAILY FOR ONE WEEK. Anusol-HC 25 mg rectal suppository Completed 11/27/2018 12/03/2018 insert 1 suppository by rectal route 2 times every day for 2 we eks azelastine 137 mcg (0.1 %) nasal spray aerosol Completed ? 07/17/2021 USE 2 SPRAYS IN EACH NOSTRIL TWICE ANDRZEJ Y NEEDED FOR NASAL CONGESTION OR RUNNY NOSE azithromycin 250 mg tablet Completed ? 06/28 FOLLOW PACKAGE DIRECTIONS Bactrim DS 800 mg-160 mg tablet Completed 08/29/2015 12/15/2015 take 1 tablet by oral route every 12 hours benzonatate 100 mg capsule Completed ? 07/05 buspirone 5 mg tablet Completed ? 06/16/2020 TK 1 T PO TID PRA cefdinir 300 mg capsule Completed ? 10/04/19 cephalexin 500 mg capsule Completed ? 2019 cephalexin 500 mg tablet Completed 06/10/2017 02
--- OUTSIDE RECORDS SUMMARY | 2022-05-26 15:56 | XMS_ITS | Encounter Summary ---
:1990 Author Care Team Providers Name Role Phone Alfonso Mccoy MD Primary Care Provider [phone] Reason for Visit OB visit OB [id number] EDC 06/24/2022 LMP 09/18/2021 Assessment and Plan Assessment Note Patient is 27___weeks . Discuss ed plan. 1. Routine care Discussion Note: None recorded.Patient educational handouts: No information available. Plan of Care Reminders Provider Appointments Nst 05/29/2022 8:30AM Nst, , EQUIP ? Ob Routine 05/30/2022 9:00AM Ellynroyce peters, CNM ? Nst 06/04/2022 9:00AM Nst, , [...]
--- OUTSIDE RECORDS SUMMARY | 2022-05-26 15:56 | XMS_ITS | Encounter Summary ---
:1990 Author Care Team Providers Name Role Phone Alfonso Mccoy MD Primary Care Provider [phone] Reason for Visit OB visit Assessment and Plan Assessment Note Patient is ___weeks . Discussed plan. 1. Routine care Doppler. Pt here to doppler heart tones. heart tones 142-152. Dina Celis RN Discussion Note: None recorded.Patient educational handouts: No [...] mg tablet,delayed release ? Take 1 tablet kate
--- OUTSIDE RECORDS SUMMARY | 2022-05-26 15:56 | XMS_ITS | Encounter Summary ---
:1990 Author Care Team Providers Name Role Phone Alfonso Mccoy MD Primary Care Provider [phone] Reason for Visit None recorded. Assessment and Plan 1. Chronic hypertension complicating AN D/OR reason for care during ? US, obstetric, follow-up ? US, obstetric, biophysical profile + non-stress test Discussion Note: None recorded.Patient educational handouts: No information available. Plan of Care Reminders Provider Appointments Nst 05/29/2022 Nst, , EQUIP 8:30AM ? Ob Routine 05/30/2022 Ellyn Pepper , CNM 9:00AM ? Nst 06/04/2022 Nst, , EQUIP 9:00AM ? Ob Routine 06/08/2022 Ellyn Pepper , CNM 9:00AM ? Nst 06/08/2022 Nst, , EQUIP 8:30AM ? Nst 06/12/2022 Nst, , EQUIP 9:00AM ? Ob Routine 06/15/2022 Ellyn Pepper , CNM 9:00AM ? Nst 06/15/2022 Nst, , EQUIP 8:30AM ? U/s Ob Growth 06/15/2022 Ultrasound Two, TECH 9:30AM ? Nst 06/19/2022 Nst, , EQUIP 9:00AM ? Ob Routine 06/22/2022 Ellyn Pepper , CNM 9:00AM ? Nst 06/22/2022 Nst, , EQUIP 8:30AM Lab None recorded. ? ? Referral None recorded. ? ? Procedures None recorded. ? ? Surgeries None recorded. ? ? I
--- OUTSIDE RECORDS SUMMARY | 2022-05-26 15:56 | XMS_ITS | Encounter Summary ---
:1990 Author Care Team Providers Name Role Phone Alfonso Mccoy MD Primary Care Provider [phone] Reason for Visit None recorded. Assessment and [...] None recorded. ? ? Imaging Non-stress Test 05/17/2022 [place] Medications Name Start Date ? ? clobetasol [...]
--- OUTSIDE RECORDS SUMMARY | 2022-05-26 15:56 | XMS_ITS | Encounter Summary ---
:1990 Author Care Team Providers Name Role Phone Alfonso Mccoy MD Primary Care Provider [phone] Reason for Visit None recorded. Assessment and [...] None recorded. ? ? Imaging Non-stress Test 05/01/2022 [place] Medications Name Start Date ? ? clobetasol [...]
--- OUTSIDE RECORDS SUMMARY | 2022-05-26 15:57 | XMS_ITS | Encounter Summary ---
:1990 Author Care Team Providers Name Role Phone Alfonso Mccoy MD Primary Care Provider [phone] Reason for Visit None recorded. Assessment and [...] recorded. ? ? Imaging US, Obstetric, Follow-up 03/28/2022 [place] Medications Name Start Date ? [...]
--- OUTSIDE RECORDS SUMMARY | 2022-05-26 15:57 | XMS_ITS | Encounter Summary ---
:1990 Author Care Team Providers Name Role Phone Alfonso Mccoy MD Primary Care Provider [phone] Reason for Visit None recorded. Assessment and Plan 1. screening ? US, obstetric, follow-up Discussion Note: None [...] recorded. ? ? Imaging US, Obstetric, Follow-up 02/28/2022 [place] Medications Name Start Date ? [...]
--- OUTSIDE RECORDS SUMMARY | 2022-05-26 15:57 | XMS_ITS | Encounter Summary ---
:1990 Author Care Team Providers Name Role Phone Alfonso Mccoy MD Primary Care Provider [phone] Reason for Visit OB visit Assessment and Plan Assessment Note Patient is _23__weeks . Discuss ed plan. 1. Routine care [...]
--- OUTSIDE RECORDS SUMMARY | 2022-05-26 16:34 | XMS_ITS | Encounter Summary ---
:1990 Author Care Team Providers Name Role Phone Alfonso Mccoy MD Primary Care Provider [phone] Reason for Visit OB visit OB [id number] EDC 06/24/2022 LMP 09/18/2021 Assessment and Plan [...]
--- OUTSIDE RECORDS SUMMARY | 2022-05-26 16:34 | XMS_ITS | Encounter Summary ---
:1990 Author Care Team Providers Name Role Phone Alfonso Mccoy MD Primary Care Provider [phone] Reason for Visit OB visit Assessment and [...]
--- OUTSIDE RECORDS SUMMARY | 2022-05-26 16:34 | XMS_ITS | Encounter Summary ---
:1990 Author Care Team Providers Name Role Phone Alfonso Mccoy MD Primary Care Provider [phone] Reason for Visit None recorded. Assessment and [...]
--- OUTSIDE RECORDS SUMMARY | 2022-05-26 16:34 | XMS_ITS | Encounter Summary ---
:1990 Author Care Team Providers Name Role Phone Alfonso Mccoy MD Primary Care Provider [phone] Reason for Visit None recorded. Assessment and [...] recorded. ? ? Imaging Non-stress Test 05/11/2022 [place] Medications Name Start Date ? ? clobetasol [...]
--- OUTSIDE RECORDS SUMMARY | 2022-05-26 16:34 | XMS_ITS ---
:1990 Author Care Team Providers Name Role Phone ERMELINDA LEWIS MD Primary Care Provider [phone] Allergies Code Code System Name Reaction Severity [...]
--- OUTSIDE RECORDS SUMMARY | 2022-05-26 16:34 | XMS_ITS | Encounter Summary ---
:1990 Author Care Team Providers Name Role Phone Alfonso Mccoy MD Primary Care Provider [phone] Reason for Visit None recorded. Assessment and [...] recorded. ? ? Imaging Non-stress Test 05/15/2022 [place] Medications Name Start Date ? ? clobetasol [...]
--- OUTSIDE RECORDS SUMMARY | 2022-05-26 16:34 | XMS_ITS | Encounter Summary ---
:1990 Author Care Team Providers Name Role Phone Alfonso Mccoy MD Primary Care Provider [phone] Reason for Visit None recorded. Assessment and [...] recorded. ? ? Imaging Non-stress Test 05/17/2022 [place] Medications Name Start Date ? ? clobetasol [...]
--- OUTSIDE RECORDS SUMMARY | 2022-05-26 16:34 | XMS_ITS | Encounter Summary ---
:1990 Author Care Team Providers Name Role Phone Alfonso Mccoy MD Primary Care Provider [phone] Reason for Visit None recorded. Assessment and [...] recorded. ? ? Imaging Non-stress Test 05/08/2022 [place] Medications Name Start Date ? ? clobetasol [...]
--- OUTSIDE RECORDS SUMMARY | 2022-05-26 16:34 | XMS_ITS | Encounter Summary ---
:1990 Author Care Team Providers Name Role Phone Alfonso Mccoy MD Primary Care Provider [phone] Reason for Visit OB visit OB [id number] EDC 06/24/2022 LMP 09/18/2021 Assessment and Plan [...]
--- OUTSIDE RECORDS SUMMARY | 2022-05-26 16:34 | XMS_ITS | Encounter Summary ---
:1990 Author Care Team Providers Name Role Phone Alfonso Mccoy MD Primary Care Provider [phone] Reason for Visit None recorded. Assessment and [...] 9:00AM ? Ob Routine 06/22/2022 Ellyn E [place] , CNM 9:00AM ? Nst 06/22/2022 Nst, , EQUIP 8:30AM Lab None recorded. ? ? Referral None recorded. ? ? Procedures None recorded. ? ? Surgeries None recorded. ? ? Imaging US, Obstetric, Biophysical 05/15/2022 [place] Profile
--- OUTSIDE RECORDS SUMMARY | 2022-05-26 16:35 | XMS_ITS | Encounter Summary ---
:1990 Author Care Team Providers Name Role Phone Alfonso Mccoy MD Primary Care Provider [phone] Reason for Visit None recorded. Assessment and [...] recorded. ? ? Imaging Non-stress Test 05/04/2022 [place] Medications Name Start Date ? ? clobetasol [...]
--- OUTSIDE RECORDS SUMMARY | 2022-05-26 16:35 | XMS_ITS | Encounter Summary ---
:1990 Author Care Team Providers Name Role Phone Alfonso Mccoy MD Primary Care Provider [phone] Reason for Visit OB visit OB [id number] EDC 06/24/2022 LMP 09/18/2021 Assessment and Plan [...]
--- OUTSIDE RECORDS SUMMARY | 2022-05-26 16:35 | XMS_ITS | Encounter Summary ---
:1990 Author Care Team Providers Name Role Phone Alfonso Mccoy MD Primary Care Provider [phone] Reason for Visit OB visit OB [id number] EDC 06/24/2022 LMP 09/18/2021 Assessment and Plan [...]
--- OUTSIDE RECORDS SUMMARY | 2022-05-26 16:35 | XMS_ITS | Encounter Summary ---
:1990 Author Care Team Providers Name Role Phone Alfonso Mccoy MD Primary Care Provider [phone] Reason for Visit None recorded. Assessment and [...] recorded. ? ? Imaging Non-stress Test 05/01/2022 [place] Medications Name Start Date ? ? clobetasol [...]
--- OUTSIDE RECORDS SUMMARY | 2022-05-26 16:35 | XMS_ITS | Encounter Summary ---
:1990 Author Care Team Providers Name Role Phone Alfonso Mccoy MD Primary Care Provider [phone] Reason for Visit OB visit OB [id number] EDC 06/24/2022 LMP 09/18/2021 Assessment and Plan [...] 9:00AM ? Ob Routine 06/22/2022 Ellyn E [place] , CNM 9:00AM ? Nst 06/22/2022 Nst, , EQU
--- OUTSIDE RECORDS SUMMARY | 2022-05-26 16:35 | XMS_ITS | Encounter Summary ---
:1990 Author Care Team Providers Name Role Phone Alfonso Mccoy MD Primary Care Provider [phone] Reason for Visit None recorded. Assessment and [...]
--- OUTSIDE RECORDS SUMMARY | 2022-05-26 16:35 | XMS_ITS | Encounter Summary ---
:1990 Author Care Team Providers Name Role Phone Alfonso Mccoy MD Primary Care Provider [phone] Reason for Visit None recorded. Assessment and [...] 9:00AM ? Ob Routine 06/08/2022 [place]lyn [place] , CNM 9:00AM ? Nst 06/08/2022 Nst, [...]
--- OUTSIDE RECORDS SUMMARY | 2022-05-26 16:35 | XMS_ITS | Encounter Summary ---
:1990 Author Care Team Providers Name Role Phone Alfonso Mccoy MD Primary Care Provider [phone] Reason for Visit None recorded. Assessment and [...]
--- OUTSIDE RECORDS SUMMARY | 2022-05-26 16:35 | XMS_ITS | Encounter Summary ---
:1990 Author Care Team Providers Name Role Phone Alfonso Mccoy MD Primary Care Provider [phone] Reason for Visit OB visit Assessment and [...]
--- OUTSIDE RECORDS SUMMARY | 2022-05-26 16:35 | XMS_ITS | Encounter Summary ---
:1990 Author Care Team Providers Name Role Phone Alfonso Mccoy MD Primary Care Provider [phone] Reason for Visit None recorded. Assessment and [...]
--- OUTSIDE RECORDS SUMMARY | 2022-05-26 16:35 | XMS_ITS | Encounter Summary ---
:1990 Author Care Team Providers Name Role Phone Alfonso Mccoy MD Primary Care Provider [phone] Reason for Visit None recorded. Assessment and Plan 1. Low back pain in Pt in office needing to be fitted for a maternity belt r/t back pain and pain in pelvis. Pt fitted for belt and gave pt n umber to call [facility] this afternoon to order belt. Pt verbalized [...]
--- NOTE | 2022-05-26 17:10 | WPDANESEPP ---
Anes - Eval Pre Procedure Procedure: labor epidural Date/Time: 05/26/22 17:10 Pre Op Diagnosis: IOL Patient Data Age: 31 Gender: F Height: Weight: Allergies Allergy/AdvReac Type Severity Reaction Status Date / Time clindamycin AdvReac Intermediate Nausea Verified 05/26/22 16:36 Home Medications Medication Instructions Recorded Confirmed Type ascorbic acid (vitamin C) 500 mg 500 mg PO DAILY 09/13/21 05/09/22 History capsule,extended release (Vitamin C) magnesium gluconate 27 mg 27 mg PO BID 09/13/21 05/09/22 History magnesium (500 mg) tablet [id number] 3-fat com #1 27 1 cap PO DAILY 12/01/21 05/09/22 History mg-1 mg-300 mg capsule cetirizine 10 mg capsule (Zyrtec) 10 mg PO DAILY PRN 03/23/22 05/09/22 History ferrous sulfate 325 mg (65 mg 325 mg PO DAILY 03/30/22 05/09/22 History iron) tablet aspirin 81 mg tablet,delayed 81 mg PO DAILY 05/26/22 05/26/22 History release (Elliot Low Dose Aspirin) cholecalciferol (vitamin D3) 50 50 mcg PO DAILY 05/26/22 05/26/22 History mcg (2,000 unit) capsule (Vitamin D3) pantoprazole 40 mg tablet,delayed 40 mg PO HS 05/26/22 05/26/22 History release Patient hx anesthesia problems: none Family hx anesthesia problems: none Results Review: All pre-operative results and documents have been reviewed as part of the pre-operative evaluation. [facility] Past Medical History Medical History Depression GERD (gastroesophageal reflux disease) History of HPV infection IBS (irritable bowel syndrome) Overweight (BMI 25.0-29.9) Surgical History Surgical History H/O dilation and curettage Family History Family History Grandparent Family history of congestive heart failure Family history of chronic obstructive pulmonary disease Family history of cardiovascular disease Mother Hypertension Osteoporosis Sibling Asthma Social History Social History Smoking status: Never smoker Alcohol intake: never Substance use: never Gender identity (if verbalized by the patient): Female Sexual Orientation (if Verbalized by the Patient): Straight or Heterosexual Spiritual care concerns: No Agree to blood products: Yes Exam Day of Procedure 05/26/22 17:10 Patient weight: obese Heart: regular rate and rhythm Lungs: normal air movement Airway: Mallampati scale Neurological: alert and oriented
[2022-05-26] MEDS: LACTATED RINGERS 1,000 ML 125 ML IV CONT (17:44)
[2022-05-26] MEDS: AMPICILLIN 2 GM/NS 100 ML 2 GM/100 ML BAG IVPB (17:45)
[2022-05-26] MEDS: OXYTOCIN 30 UNITS/NS 500 ML 30 UNITS/500 ML BAG IV CONT (17:45)
[2022-05-26] MEDS: AMPICILLIN 1 GM/NS 50 ML 1 GM/50 ML BAG IVPB (21:57)
[2022-05-26] MEDS: FAMOTIDINE 20 MG TABLET PO (23:11)
[2022-05-27] VITALS (191 sets, daily range): BP systolic 77–144; BP diastolic 32–104; PULSE 57–224; RESP 16; TEMP 36.2–36.8; O2SAT 88–100
[2022-05-27] MEDS: AMPICILLIN 1 GM/NS 50 ML 1 GM/50 ML BAG IVPB ×4 (02:00→14:34)
[2022-05-27] MEDS: LACTATED RINGERS 1,000 ML 125 ML IV CONT ×3 (02:52→10:05)
[2022-05-27] MEDS: ACETAMINOPHEN 500 MG TABLET 1000 MG PO ×2 (05:12→16:13)
--- NOTE | 2022-05-27 07:07 | WPDOBADMIT ---
Obstetrics - Admit Note Admission Note: record reviewed. No pertinent additions to the history and/or any subsequent changes in the physical findings that are not consistent with the expected course of the were found. pt admitted for worsening cholestasis, increase in symptoms of pruritus and significant increase in liver enzymes. also complicated by chronic vs gestational HTN and chronic interstitial cystitis, has been taking asa daily. SVE 2/-2 AROM small amount of clear odorless fluid, anticipate vaginal delivery, dr reza is being consulted and is collaborating on this case Additions to the history and/or subsequent changes in the physical findings follow. None.
[2022-05-27] MEDS: ePHEDrine sulfate INJ 50 MG/ML AMPUL IV PUSH ×2 (09:12→09:16)
--- NOTE | 2022-05-27 09:25 | WPDANESEPPF ---
Anes - Initial Pre Proc Eval Procedure: labor epidural Date/Time: 05/27/22 08:45 Surgeon: Charley Gutierres MD Pre Op Diagnosis: labor pain Pre Op Diagnosis: IOL Patient Data Age: 31 Gender: F Height: 1.65 m Weight: 102 kg Last Vital Signs Temp 36.8 C 05/27/22 08:00 Pulse 108 H 05/27/22 09:24 BP 101/69 05/27/22 09:24 Pulse Ox 99 05/27/22 09:22 O2 Del Method Room Air 05/26/22 17:10 Allergies Allergy/AdvReac Type Severity Reaction Status Date / Time clindamycin AdvReac Intermediate Nausea Verified 05/26/22 16:36 Home Medications Medication Instructions Recorded Confirmed Type ascorbic acid (vitamin C) 500 mg 500 mg PO DAILY 09/13/21 05/26/22 History capsule,extended release (Vitamin C) magnesium gluconate 27 mg 27 mg PO BID 09/13/21 05/26/22 History magnesium (500 mg) tablet [id number] 3-fat com #1 27 1 cap PO DAILY 12/01/21 05/26/22 History mg-1 mg-300 mg capsule cetirizine 10 mg capsule (Zyrtec) 10 mg PO DAILY PRN Allergy Symptoms 03/23/22 05/26/22 History ferrous sulfate 325 mg (65 mg 325 mg PO DAILY 03/30/22 05/26/22 History iron) tablet aspirin 81 mg tablet,delayed 81 mg PO DAILY 05/26/22 05/26/22 History release (Elliot Low Dose Aspirin) cholecalciferol (vitamin D3) 50 50 mcg PO DAILY 05/26/22 05/26/22 History mcg (2,000 unit) capsule (Vitamin D3) pantoprazole 40 mg tablet,delayed 40 mg PO HS 05/26/22 05/26/22 History release Laboratory Tests 05/26/22 05/26/22 17:06 17:06 RPR Pending Blood Type O Positive Antibody Screen Negative Patient hx anesthesia problems: none Family hx anesthesia problems: none Results Review: All pre-operative results and documents have been reviewed as part of the pre-operative evaluation. [facility] Past Medical History Medical History Depression GERD (gastroesophageal reflux disease) History of HPV infection IBS (irritable bowel syndrome) Overweight (BMI 25.0-29.9) Surgical History Surgical History H/O dilation and curettage Family History Family History Grandparent Family history of congestive heart failure Family history of chronic obstructive pulmonary disease Family history of cardiovascular disease Mother Hypertension Osteoporosis Sibling Asthma Social History Social History Smoking status: Never smoker Second hand tobacco smoke exposure: No Alcohol intake: never Substance use: never Lack of Transportation: No Lack of Food: Never True Current Housing: I Have Housing Concerned About Future Housing: No Difficulty Paying Gas/Electric Bills: No Difficulty Paying for Meds: No Currently Unemployed: No Education: Don't Know Difficulty w/ Childcare or Family Care: No Gender identity (if verbalized by the patient): Female Sexual Orientation (if Verbalized by the Patient): Straight or Heterosexual Spiritual care concerns: No Agree to blood products: Yes Anes - Eval Final PreProcedure Day of Procedure 05/27/22 09:25 Results Review: All pre-operative results and documents have been reviewed as part of the pre-operative evaluation. Informed Consent: The patient's anesthetic plan and its attendant risks and benefits were discussed with the patient/family/POA. Questions were solicited and answers provided to the satisfaction of the patient/family/POA.
--- NOTE | 2022-05-27 18:00 | PM.OBPRVD ---
OB - Delivery Note Procedure Delivery date: 05/27/22 Procedure: Events: Gestational Hypertension and Other (cholestatsis) Induction method: Per Pitocin Protocol Delivery augmentation: Rupture of Membranes Delivery monitor: External FHT and Internal Uterine Route of delivery: Laceration Description: None Specimen: Yes Quantitative Blood Loss (ml): 240 Anesthesia type: Epidural Disposition: Floor Narrative: mom and baby stable and doing skin to skin Baby Date of : 05/27/22 Time of : 17:46 Weeks of gestation at delivery: 35 gender: Female Weight (pounds): 7 Weight (ounces): 3 presentation: vertex position: Left Occiput Anterior Placenta delivery description: Spontaneous Cord Vessel Description: 3 Vessels, Clamped/Cut and Around Extremity (right foot)
[2022-05-27] MEDS: OXYTOCIN 30 UNITS/NS 500 ML 30 UNITS/500 ML BAG 125 UNITS IV CONT (18:04)
[2022-05-27 20:43] LABS: Hematocrit 37.1 % (37.0-47.0); Hemoglobin 12.2 g/dL (12.0-15.0); Mean Corpuscular HGB Conc 32.9 g/dl (32-36); Mean Corpuscular Volume 91.2 fl (80-100); Platelet Count Result 417 k/mm3 (150-375); Red Blood Count 4.07 M/mm3 (4.2-5.4)
--- NOTE | 2022-05-27 20:44 | PC.NURSE ---
Patient transferred to post room # 284 via ( W/C ). Support person present. Oriented to unit, room, information board, rooming in, admission packet and security measures. Patient verbalizes understanding.
[2022-05-27 20:53] LABS: Alanine Aminotransferase 147 U/L (6-35); Albumin Level 3.2 g/dL (3.5-5.1); Alkaline Phosphatase 226 U/L (38-126); Anion Gap 3 mmol/L (8-16); Aspartate Amino Transferase 120 U/L (14-36); Bilirubin,Total 0.8 mg/dL (0.2-1.3); Blood Urea Nitrogen 10 mg/dL (7-17); Calcium 8.7 mg/dL (8.4-10.2); Carbon Dioxide 25 mmol/L (22-30); Chloride 105 mmol/L (98-107); Estimated CRCL calculation 134 ml/min; Estimated Glomerular Filt Rate > 60; Glucose 118 mg/dL (65-110); Potassium 3.9 mmol/L (3.4-5.0); Sodium 133 mmol/L (137-145); Uric Acid 5.2 mg/dL (2.5-7.5)
[2022-05-27] MEDS: IBUPROFEN 600 MG TABLET PO (21:17)
[2022-05-28 00:38] VITALS: BP 127/80; PULSE 87; RESP 16; TEMP 36.4; O2SAT 97
[2022-05-28 04:30] VITALS: BP 132/83; PULSE 79; RESP 16; TEMP 36.9; O2SAT 98
[2022-05-28 06:03] LABS: Alanine Aminotransferase 130 U/L (6-35); Alkaline Phosphatase 203 U/L (38-126); Anion Gap 4 mmol/L (8-16); Aspartate Amino Transferase 106 U/L (14-36); Bilirubin,Total 0.6 mg/dL (0.2-1.3); Blood Urea Nitrogen 9 mg/dL (7-17); Calcium 8.7 mg/dL (8.4-10.2); Carbon Dioxide 25 mmol/L (22-30); Chloride 107 mmol/L (98-107); Estimated CRCL calculation 134 ml/min; Estimated Glomerular Filt Rate > 60; Glucose 65 mg/dL (65-110); Potassium 3.9 mmol/L (3.4-5.0); Sodium 136 mmol/L (137-145)
[2022-05-28 06:22] LABS: Hematocrit 34.1 % (37.0-47.0)
[2022-05-28 06:43] LABS: Rapid Plasma Reagin Non-Reactive (NonReactive)
--- NOTE | 2022-05-28 08:01 | PM.OBPNVD ---
OB - PN: Subj Subjective Date/time seen: 05/28/22 08:01 Patient comments: no complaints and pain well controlled baby status: doing well [place] feeding status: breast and bottle feeding OB - PN: Obj Data Labs CBC & Chem 7: 05/28/22 04:51 05/28/22 04:51 Labs: Laboratory Results - last 24 hr 05/26/22 05/27/22 05/27/22 17:06 20:36 20:36 WBC 20.0 H RBC 4.07 L Hgb 12.2 Hct 37.1 MCV 91.2 MCH 30.0 MCHC 32.9 RDW 14.0 Plt Count 417 H MPV 10.0 Sodium 133 L Potassium 3.9 Chloride 105 Carbon Dioxide 25 Anion Gap 3 L BUN 10 Creatinine 0.60 L Estim Creat Clear Calc 134 Estimated GFR > 60 Glucose 118 H Uric Acid 5.2 Calcium 8.7 Total Bilirubin 0.8 AST 120 H ALT 147 H Alkaline Phosphatase 226 H Total Protein 6.0 L Albumin 3.2 L RPR Non-reactive 05/28/22 05/28/22 04:51 04:51 WBC RBC Hgb 11.0 L Hct 34.1 L MCV MCH MCHC RDW Plt Count MPV Sodium 136 L Potassium 3.9 Chloride 107 Carbon Dioxide 25 Anion Gap 4 L BUN 9 Creatinine 0.60 L Estim Creat Clear Calc 134 Estimated GFR > 60 Glucose 65 Uric Acid Calcium 8.7 Total Bilirubin 0.6 AST 106 H ALT 130 H Alkaline Phosphatase 203 H Total Protein 6.0 L Albumin 3.0 L RPR OB - PN A/P Plan day: 1 Plan: routine care Time Spent With Patient Time: Total time spent is greater than 50% in coordination of care (as documented) at patient's floor/unit and/or counseling patient: Time with patient: less than 15 minutes Exam Narrative: NAD abdomen soft, nontender, fundus firm below the umbilicus Extremities nontender, 1+ edema
[2022-05-28 08:05] VITALS: BP 122/80; PULSE 80; RESP 16; TEMP 37.3; O2SAT 98
[2022-05-28] MEDS: MULTIVIT/MIN/PREN/FOL AC/IRON TABLET 1 TAB PO (09:39)
[2022-05-28] MEDS: IBUPROFEN 600 MG TABLET PO ×2 (09:39→18:16)
[2022-05-28] MEDS: DOCUSATE SODIUM 100 MG CAPSULE PO ×2 (09:40→16:31)
--- NOTE | 2022-05-28 09:47 | WPDANLDPN2 ---
Anes-Prog Note L&D Date/Time: 05/28/22 09:47 Neuro status: Neuro function grossly intact. Cardiovascular status: normal Respiratory status: normal Airway patency: baseline Mental status: baseline Post-Op hydration status: normal Vital Signs: Last Vital Signs Temp 37.3 C 05/28/22 08:05 Pulse 80 05/28/22 08:05 Resp 16 05/28/22 08:05 BP 122/80 05/28/22 08:05 Pulse Ox 98 05/28/22 08:05 O2 Del Method Room Air 05/26/22 17:10 Pain score (VAS): 3 I/O: Intake & Output 05/27/22 05/28/22 05/28/22 23:59 07:59 15:59 Intake Total 550 700 Output Total 450 1200 Balance 100 -500 Patient feedback: Patient satisfied with anesthetic care.
[2022-05-28 12:10] VITALS: BP 115/72; PULSE 87; RESP 16; TEMP 37.1; O2SAT 97
[2022-05-28 16:00] VITALS: BP 110/70; PULSE 86; RESP 16; TEMP 37; O2SAT 98
[2022-05-28 19:33] VITALS: BP 136/91; PULSE 89; RESP 16; TEMP 36.9; O2SAT 98
[2022-05-29] MEDS: IBUPROFEN 600 MG TABLET PO (03:52)
--- NOTE | 2022-05-29 07:33 | PM.OBPNVD ---
OB - PN: Subj Subjective Date/time seen: 05/29/22 07:33 s/p vaginal delivery day 2, IOL for worsening cholestasis OB - PN: Obj Data Labs CBC & Chem 7: 05/28/22 04:51 05/28/22 04:51 OB - PN A/P Plan day: 2 Plan: routine care and discharge home Time Spent With Patient Time: Total time spent is greater than 50% in coordination of care (as documented) at patient's floor/unit and/or counseling patient: Review of Systems Review of Systems: All systems reviewed & are unremarkable except as noted in HPI and below Exam Const: General: cooperative and healthy appearing
--- NOTE | 2022-05-29 07:37 | PM.OBDSVD ---
DS: Admitting Diagnosis Discharge Date 05/29/22 Admitting Diagnosis IOL, cholestasis OB - DS: Summary OB Procedures : None OB Procedures Intrapartum: Spontaneous Vag Delivery OB Procedures: : None Time Spent with Patient Time attestation: Total time spent providing and/or coordinating discharge services: DS: Data Data Completed and Pending Pending studies at discharge: Pending at discharge 05/27/22 17:50 Surgical [PTH] Routine Discharge Plan Discharge Attending physician on discharge: Charley Gutierres Discharging Clinician: Ellyn Pepper Patient Disposition: Home, Self-Care Activity: pelvic rest Diet: regular Patient Instructions: Antibiotic Form Stand Alone Forms: General Discharge Information Follow-up/Referrals: Ellyn Pepper, CNM [Certified Nurse Airplane Patroller] - 4 Weeks (rpt blood work in office later this week) Discharge Medications: New ibuprofen 600 mg Tablet 600 mg PO Q6H PRN (Reason: Cramping) Qty: 30 0RF Continued ascorbic acid (vitamin C) [Vitamin C] 500 mg capsule, extended release 500 mg PO DAILY [id number]-[id number]-omega 3-fat com #1 27-1-300 mg capsule 1 cap PO DAILY Zyrtec 10 mg capsule 10 mg PO DAILY PRN (Reason: Allergy Symptoms) ferrous sulfate 325 mg (65 mg iron) tablet 325 mg PO DAILY cholecalciferol (vitamin D3) [Vitamin D3] 50 mcg (2,000 unit) Capsule 50 mcg PO DAILY Discontinued magnesium gluconate 27 mg magnesium (500 mg) tablet 27 mg PO BID aspirin [Elliot Low Dose Aspirin] 81 mg Tablet,Delayed Release (Dr/Ec) 81 mg PO DAILY pantoprazole 40 mg Tablet,Delayed Release (Dr/Ec) 40 mg PO HS Date of admission: 05/26/22 15:25 Primary Care Provider: Alfonso Larkin Admitting Provider: Charley Gutierres Attending physician on admission: Charley Gutierres Condition: Stable
[2022-05-29 07:45] VITALS: BP 116/77; PULSE 72; RESP 16; TEMP 37.1; O2SAT 98
--- NOTE | 2022-05-29 11:03 | PC.NURSE ---
[id number] Introductions were made, then consulted with patient to assess needs related to . Mother led the conversation with her?plans to feed?her infant and is demonstrating cross cradle position to the left breast. Mother denies any pain or discomfort. was detached due to the latch appeared to be less than 90 degrees. The nipple was slightly misshaped. Infant's EGA at delivery was 35 weeks and mother's nipples are large everted nipples. Mother states the left side has been more challenging than the right breast. Mother has a history of great success with . We reviewed big, open, wide gape with receiving a mouthful to improve getting nipple to the soft palate. A suggestion was made to rotate between the positions for feedings while is learning optimal latching. Infant's hands are open and relaxed with no efforts to breastfeed on the right breast. Infant meets all the criteria for voids, stools, jaundice and weight at this time. has had appropriate feedings in the last 24 hours. Mother states she is confident to continue effectively her infant at home, when to call for assistance, has resource Dina in the OB office and denies any additional assistance or education at this time. Reinforced understanding of milk production, transition of milk, signs of adequate intake, prevention/relief of engorgement, responsive after visualizing feeding cues, the different methods of stimulating infant to breastfeed 2-3 hours after the start of the last feeding, community resources, medication information reviewed per [employer] and when to call a provider using the resource of the mom and baby guide/[facility] website. Mother voiced understanding of the education shared. Reported to the primary RN.
[2022-05-30 10:16] VITALS: BP 138/99; PULSE 92; RESP 20; TEMP 37.1; O2SAT 99
== END 2022-05-29 11:18 | disposition home or self-care (01) | DRG 560 ==
LOC: ANHLDR 16:32 → ANHOB2 05-27 20:59
PROVIDERS: Advanced Practice Midwife; Admitting Provider Obstetrics & Gynecology; PCP Internal Medicine; Visit Provider Obstetrics & Gynecology
DX: O13.4 Gestational [pregnancy-induced] hypertension without significant proteinuria, complicating childbirth (principal); K83.1 Obstruction of bile duct; O26.62 Liver and biliary tract disorders in childbirth; Z3A.35 35 weeks gestation of pregnancy; Z37.0 Single live birth
CPT/HCPCS: 36415; 59025; 76819; 80053; 82542; 82570; 84156; 84550; 85014; 85018; 85025; 85027; 86592; 86850; 86900; 86901; 88307; A9270; J0290; J2590; J2795; J7120

== ENCOUNTER 2022-06-15 15:19 | Outpatient (CLI) | payer OTHER, SELFPAY ==
[2022-06-15 16:53] LABS: Influenza A QL RT-PCR Negative (Negative); Influenza B QL RT-PCR Negative (Negative)
== END 2022-06-15 15:20 | disposition home or self-care (01) ==
PROVIDERS: PCP Internal Medicine; Visit Provider Advanced Practice Midwife
DX: O26.619 Liver and biliary tract disorders in pregnancy, unspecified trimester (principal); Z3A.00 Weeks of gestation of pregnancy not specified
CPT/HCPCS: 87502

== ENCOUNTER 2022-10-23 09:45 | Outpatient (RCR) | payer OTHER, SELFPAY ==
--- NOTE | 2022-08-30 10:43 | PTOPEVAL1 ---
Assessment and note entered by Roberta William, PT Evaluation Information Assessment Status Evaluation Diagnosis L hip and L shoulder pain Onset Jul 2022 Subjective Information have orders for diagnosis' of L shoulder and L hip pain; she reports shoulder is more an issue at this time, will start therapy for L shoulder; gradual increase in L shoulder pain since had her daughter, who is now 3 months old; no trauma or injury to shoulder; her breasts are larger due to breast feeding and she is using her arms alot more with caring for daughter; her was difficult and she was not very active and had 70# wt gain; has not recovered from the yet Has been trying to walk more and starting more activity. Reported Pain Level Pain Score Self Report L shoulder Additional Pain Score Comments pain range in past week 0-9/10; L shoulder -- directly in joint, feels like pop out of place; increase with use of arm--cleaning home hurts for several days, lifting 14# daughter out of crib; decrease pain: rest, PRN over the counter meds-- have not taken any in the past week. is not using heat/ice- discussed PRN use; sleeping is OK, do not awaken from pain, but in the morning sometimes hurts; generally sleep on side or stomach Assessment PT Clinical Summary Hema has the diagnosis' of L shoulder pain and L hip pain. She wanted to start treatment with shoulder. Pain gradual increase since having her daughter, caring for her, breast feeding and lifting her out of the crib. Her history includes: neck pain, back pain, carpal tunnel pain. With the evaluation, she has decreased L shoulder flexion and abduction ROM and with pain; poor posture and position of shoulder and tenderness anterior GH joint. Skilled PT services are indicated for modalities to decrease pain; therapeutic exercises to strengthen shoulder-scapular musculature, posture correction and education, home exercise program. Plan of Care Interventions Electrical Stimulation,Hot Pack/Cold Pack,Manual Therapy,Neuro Re-education,Patient/Caregiver Education,Therapeutic Activities,Therapeutic Exercise,Ultrasound,Other Other Interventions
--- NOTE | 2022-09-25 10:45 | PTOPPROG ---
Assessment and note entered by Roberta William, PT Evaluation Information Assessment Status Progress Diagnosis L hip and L shoulder pain Onset Jul 2022 Subjective Information Hema reports: shoulder feels about the same; maybe a little more motion; doing the exercises at home; sometimes sore after therapy, 2 days later feel it; has had treatment in the past for her back pain, by a chiropractor, when she was ; she had baby 4 months ago; PAIN: L shoulder: pain range in the past week 0-5/10, achey and sore inside joint when use arm; at rest no pain; increase pain with using arm- lifting overhead into cabinet to get something and when sleeping, lie on L side; decrease pain with rest, heat/ice; is not taking any pain meds; no issues with holding her daughter to breast feed her, but some with reaching out to pick her up; L HIP: pain in past week 0-810; both hips hurt- -varies R/L side; sharp, shooting pain; sometimes goes down leg to foot- intermittent, related to position; decrease with massage roller ball, rest; increase pain with sleeping--on her side with top leg flexed and forward, do not awaken from sleep, but hurt in AM when wake up; cleaning house; sitting with good posture is OK, curled up on couch have to change position; Assessment PT Clinical Summary Hema has received 7 PT sessions for L shoulder pain. Compared to the initial evaluation: pain has decreased from 9 to 5/10 at worst; increased active shoulder flexion and abduction ROM and strength; shoulder IR and ER are no longer painful motions; she has been educated on HEP and posture of her shoulder; The shoulder goals were partially met; Discontinue treatment on her shoulder. Evaluation of L hip pain from initial order: She has tightness of R and L hamstring, weakness of trunk and hips, with poor posture of lumbar- sacral spine--in standing: R hip elevated and
--- NOTE | 2022-10-05 11:32 | PCPTNOTE ---
pt called and canceled appointment, at the time of the appointment, due to her child being ill as she was driving here.
--- NOTE | 2022-10-18 10:28 | PCPTNOTE ---
Patient called & rescheduled appointment this date due to her TMJ acting up.
--- NOTE | 2022-10-19 11:52 | PCPTNOTE ---
Called patient due to no show; stated she forgot to call due to getting an emergency visit into dentist for TMJ pain. Reminded for next appointment 10/23 @9:45.
--- NOTE | 2022-10-23 10:42 | PCPTNOTE ---
pt was 10 min late for today's reeval appt;
--- NOTE | 2022-10-23 10:43 | PTOPDC ---
Assessment and note entered by Roberta William, PT Evaluation Information Assessment Status Discharge Diagnosis L hip and L shoulder pain Onset Jul 2022 Subjective Information Hema reports: have been having problems with infected tooth, so back has not been so bad, also pain in L shoulder too; has been taking more tylenol due to tooth pain and not as active, except caring for daughter; continues to have shoulder pain with lifting daughter, breast feeding and repositioning her--at rest no pain in shoulder; discussed with her repetitive and increased use of shoulder-- irritating shoulder; to monitor and discuss with dr if continue to be an issue; has order for TMJ treatment--has had problems with TMJ in the past and worse now; Agreed to continue with her L shoulder and back exercises; monitor TMJ and after dental work is complete, if she continues to have issues, to call for TMJ eval. Reported Pain Level Pain Score Self Report Additional Pain Score Comments pain range of 0-4/10 in past week, L hip and low back, without any radicular pain; increase pain with poor positioning--leaning over to change babies' diaper; decrease pain with posture correction, change position; Assessment PT Clinical Summary Hema has received a total of 13 PT sessions. She called and canceled 2 and did not show for 1 appointment. Treatment started for her L shoulder it was completed and then treatment for her back. She also has orders for TMJ--but is having dental work, infected tooth and on antibiotics. Treatment is not completed with her dentist. She has the order for this and is to call in the future if she continues to have TMJ issues after dental work completed. Compared to her back evaluation at last: pain at worst has decreased from 8 to 4/10 and no longer has any radicular pain into LE's; increased flexibility of R and L hamstring and piriformis length with supine stretching; supine motions of R hip flexion and L hip ER are no longer painful; She continues to have some trunk and hip weakness with increased lumbar lordosis, but is aware of it and strength has increased. Education has been co
== END 2022-11-13 10:13 | disposition home or self-care (01) ==
LOC: ANHPT 09:45
PROVIDERS: PCP Family Medicine; Visit Provider Nurse Practitioner
DX: M25.512 Pain in left shoulder (principal); M25.552 Pain in left hip
CPT/HCPCS: 97014; 97110; 97112; 97140; 97161; 97530; 99199; G0283

== ENCOUNTER 2022-12-18 13:11 | Emergency (ER) | payer OTHER, SELFPAY ==
--- NOTE | 2022-12-18 13:13 | ED.URI ---
HPI - URI/Sore Throat General Chief Complaint: Upper Respiratory Infection Stated Complaint: Sore Throat Time Seen by Provider: 12/18/22 13:45 Source: patient and RN notes reviewed Mode of arrival: ambulatory Limitations: no limitations History of Present Illness HPI Narrative: 31-year-old female presents with concern for sore throat, raspy voice. Reports her daughter has similar symptoms. She denies fever, aches, chills, sweats, cough, rhinorrhea, nasal congestion. Reports she did not take medications for her symptoms. MD elicited complaint: sore throat Related Data Home Medications Medication Instructions Recorded Confirmed ascorbic acid (vitamin C) 500 mg 500 mg PO DAILY 09/13/21 08/13/22 capsule,extended release (Vitamin C) cetirizine 10 mg capsule (Zyrtec) 10 mg PO DAILY PRN Allergy Symptoms 03/23/22 08/13/22 cholecalciferol (vitamin D3) 50 50 mcg PO DAILY 05/26/22 08/13/22 mcg (2,000 unit) capsule (Vitamin D3) pantoprazole 40 mg tablet,delayed 40 mg PO QAM 08/13/22 08/13/22 release Iud 12/18/22 Allergies Allergy/AdvReac Type Severity Reaction Status Date / Time clindamycin AdvReac Intermediate Nausea Verified 12/18/22 13:18 Review of Systems Review of Systems: CONSTITUTIONAL: Denies malaise, chills, sweats, or fever. EYES: Denies visual changes, redness, or discharge. ENT: Denies rhinorrhea, congestion, sinus pain, otalgia. Reports sore throat. CARDIOVASCULAR: Denies chest pain, palpitations, or edema. RESPIRATORY: Denies cough. Denies dyspnea. GASTROINTESTINAL: Denies abdominal pain, nausea, vomiting, diarrhea SKIN: Denies rash or itching. MUSCULOSKELETAL: Denies myalgia. NEUROLOGIC: Denies headache. All systems reviewed & are unremarkable except as noted in HPI and below PMFSH Past Medical History Medical History Depression GERD (gastroesophageal reflux disease) History of HPV infection IBS (irritable bowel syndrome) Overweight (BMI 25.0-29.9) Surgical History Surgical History H/O dilation and curettage Family History Family History Grandparent Family history of congestive heart failure Family history of chronic obstructive pulmonary disease Family history of cardiovascular disease Mother Hypertension Osteoporosis Alcoholism Depression Thyroid disorder Sibling Asthma Depression Social History Social History Smoking status: Never smoker Second hand tobacco smoke exposure: No Alcohol intake: never Substance use: never Lack of Transportation: No Lack of Food: Never True Current Housing: I Have Housing Concerned About Future Housing: No Difficulty Paying Gas/Electric Bills: No Difficulty Paying for Meds: No Currently Unemployed: No Education: Don't Know Difficulty w/ Childcare or Family Care: No Living arrangements: with family Occupation/Education: unemployed Gender identity (if verbalized by the patient): Female Sexual Orientation (if Verbalized by the Patient): Straight or Heterosexual Spiritual care concerns: No Agree to blood products: Yes Comments At time of signature, agree with nursing past medical, surgical, social and family history. There is no relevant family history pertinent to the presenting complaint Exam Narrative: GENERAL: Well-appearing, well-nourished, and in no acute distress. HEAD: Normocephalic EYES: PERRLA, conjunctivae clear ENT: Nares clear, turbinates edematous and erythematous, clear discharge. Mucous membranes moist. TM pearly owens with dull light reflex bilaterally; no tragal tenderness. Oropharynx not erythematous without lesions. Tonsils not enlarged and without exudate, no drooling, no hoarseness, no trismus, uvula midline. NECK: Supple. No lymphadenopathy CHEST: Cl
[2022-12-18 13:19] VITALS: BP 116/81; PULSE 92; RESP 16; TEMP 37.2; O2SAT 99
== END 2022-12-18 14:05 | disposition home or self-care (01) ==
PROVIDERS: Emergency Provider Nurse Practitioner; PCP Emergency Medicine
DX: J06.9 Acute upper respiratory infection, unspecified (principal); Z20.822 Contact with and (suspected) exposure to COVID-19; K21.9 Gastro-esophageal reflux disease without esophagitis
CPT/HCPCS: 87081; 87426; 87804; 87880; 99213; C9803; G0463

== ENCOUNTER 2023-03-09 17:39 | Emergency (ER) | payer OTHER, SELFPAY ==
[2023-03-09 17:49] VITALS: BP 123/83; PULSE 113; RESP 16; TEMP 37.8; O2SAT 100
--- NOTE | 2023-03-09 18:11 | ED.SKABFB ---
HPI - Skin/Abscess/Foreign Bdy General Chief complaint: Skin/Abscess/Foreign Body Stated complaint: Right Breast Pain Time Seen by Provider: 03/09/23 18:11 Source: patient, RN notes reviewed and old records reviewed Mode of arrival: ambulatory Limitations: no limitations History of Present Illness HPI narrative: 32 year old female who presents to [facility] with complaints of pain with some redness and swelling with some warmth to her right breast which she noted on Saturday and then symptoms went away and returned today with fevers Patient reports that she has continued to breast feed her child, nipples are tender also and has been applying coconut oil to her nipples. Patient reports that she has been running a temperature today and she has body aches also with patient taking Ibuprofen and Tylenol today. Patient reports that she had some Augmentin at home and took one dose. MD complaint: abscess/boil Onset (ago): day(s) (initial Saturday did get better then started again today.) Severity: mild Treatments prior to arrival: NSAID and other (Tylenol) Related Data Home Medications Medication Instructions Recorded Confirmed ascorbic acid (vitamin C) 500 mg 500 mg PO DAILY 09/13/21 02/18/23 capsule,extended release (Vitamin C) cetirizine 10 mg capsule (Zyrtec) 10 mg PO DAILY PRN Allergy Symptoms 03/23/22 02/18/23 cholecalciferol (vitamin D3) 50 50 mcg PO DAILY 05/26/22 02/18/23 mcg (2,000 unit) capsule (Vitamin D3) Iud 12/18/22 02/18/23 Allergies Allergy/AdvReac Type Severity Reaction Status Date / Time clindamycin AdvReac Intermediate Nausea Verified 03/09/23 18:03 Review of Systems Review of Systems: CONSTITUTIONAL: Reports fever, chills, or sweats. CARDIOVASCULAR: Denies chest pain, palpitations, or edema. RESPIRATORY: Denies cough or dyspnea. GASTROINTESTINAL: Denies abdominal pain, nausea, vomiting SKIN: Reports redness and swelling to right breast with some redness streaks on anterior breast with warmth. MUSCULOSKELETAL: positive myalgia. NEUROLOGIC: Denies headache, numbness All systems reviewed & are unremarkable except as noted in HPI and below PMFSH Past Medical History Medical History Depression GERD (gastroesophageal reflux disease) History of HPV infection IBS (irritable bowel syndrome) Overweight (BMI 25.0-29.9) Surgical History Surgical History H/O dilation and curettage Family History Family History Grandparent Family history of congestive heart failure Family history of chronic obstructive pulmonary disease Family history of cardiovascular disease Mother Hypertension Osteoporosis Alcoholism Depression Thyroid disorder Sibling Asthma Depression Social History Social History Smoking status: Never smoker Second hand tobacco smoke exposure: No Alcohol intake: never Substance use: never Lack of Transportation: No Lack of Food: Never True Current Housing: I Have Housing Concerned About Future Housing: No Difficulty Paying Gas/Electric Bills: No Difficulty Paying for Meds: No Currently Unemployed: No Education: Don't Know Difficulty w/ Childcare or Family Care: No Living arrangements: with family Occupation/Education: unemployed Gender identity (if verbalized by the patient): Female Sexual Orientation (if Verbalized by the Patient): Straight or Heterosexual Spiritual care concerns: No Agree to blood products: Yes Comments At time of signature, agree with nursing past medical, surgical, social and family history. There is no relevant family history pertinent to the presenting complaint Exam Narrative: GENERAL: Well-appearing, well-nourished, and in no acute distress. HEAD: Normocephalic, atraumatic. EYES:
== END 2023-03-09 18:53 | disposition home or self-care (01) ==
PROVIDERS: Emergency Provider Registered Nurse; PCP Emergency Medicine
DX: N61.0 Mastitis without abscess (principal); K21.9 Gastro-esophageal reflux disease without esophagitis
CPT/HCPCS: 99213; G0463

== ENCOUNTER 2023-11-05 11:26 | Emergency (ER) | payer OTHER, SELFPAY ==
[2023-11-05 11:48] VITALS: BP 128/94; PULSE 101; RESP 16; TEMP 36.7; O2SAT 99
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
== END 2023-11-05 12:15 | disposition home or self-care (01) ==
PROVIDERS: Emergency Provider Nurse Practitioner; PCP Emergency Medicine
DX: M54.2 Cervicalgia (principal); K21.9 Gastro-esophageal reflux disease without esophagitis
CPT/HCPCS: 99213; G0463